=== PATIENT | male | born 1950 | race Caucasian/White ===

== ENCOUNTER 2018-12-09 14:31 | Inpatient (IN) ==
[2018-12-09] MEDS ORDERED: *HR* Ticagrelor 90 MG TABLET PO ONE (14:45)
[2018-12-09] MEDS ORDERED: *HR* Heparin 5,000 UNIT/ML VIAL IVP ONE (14:45)
[2018-12-09] MEDS ORDERED: Heparin 25,000 UNIT/250 ML D5W 25,000 UNIT/250 ML IV.SOLN IVC SCH (14:45)
[2018-12-09] MEDS ORDERED: *HR* Heparin 5,000 UNIT/ML VIAL IVP PRN ×2 (14:45)
--- NOTE | 2018-12-09 14:54 | Emergency Department Note ---
Disposition Clinical Impression: STEMI (ST elevation myocardial infarction) Qualifiers: Involved coronary artery: unspecified coronary artery Qualified Code(s): I21.3 - ST elevation (STEMI) myocardial infarction of unspecified site Disposition: Admitted As Inpatient [facility] - Forms: ED Satisfaction Letter Time of Disposition: 14:59 General Adult HPI - General Stated complaint: [place] Stemi Time Seen by Provider: 12/09/18 14:36 Source: patient, EMS Mode of arrival: EMS Limitations: no limitations Nursing Notes Reviewed: Yes Vital Signs Reviewed: Yes - History of Present Illness HPI Narrative: 68M with PMHx of COPD presents to the ED via EMS with concern for a STEMI. Pt has had 4 days of intermittent cp but the pain became more severe last night [facility] Pt states belching improves the pain but has never completely gotten rid of the pain. Pt was found to have an elevated troponin at the [facility] of 0.16 with EKG changes while at the [facility] and was transferred here for further evaluation and possible intervention. Pt complains of chest pain across his chest without radiation anywhere. He denies nausea, vomiting, and increased shortness of breath. He received nitro via EMS which did not improve his pain. - Related Data Allergies Allergy/AdvReac Type Severity Reaction Status Date / Time acetaminophen [From Percocet] Allergy Diarrhea Verified 12/09/18 14:48 ampicillin Allergy Diarrhea Verified 12/09/18 14:48 oxycodone [From Percocet] Allergy Diarrhea Verified 12/09/18 14:48 Penicillins [PCN] Allergy Diarrhea Verified 12/09/18 14:48 All systems ED: reviewed and negative except as stated. Review of Systems: As Per HPI Constitutional: Denies: fever, chills, weakness Cardiovascular: Reports: chest pain. Denies: palpitations, dyspnea on exertion Respiratory: Reports: cough. Denies: dyspnea, wheezes Gastrointestinal: Denies: abdominal pain, nausea, vomiting Genitourinary: Denies: dysuria, hematuria Musculoskeletal: Denies: back pain, neck pain Endocrine: Reports: fatigue Past Medical History - Past Medical History Attestation: Yes The following information was validated with the patient. Source: patient Medical history: Reports: COPD Physical Exam - General Limitations: no limitations General appearance: alert, in distress (mild distress) - Head Head exam: atraumatic, normocephalic - Eye Eye exam: Present: normal appearance, EOMI - Chest Chest inspection: Present: normal inspection. Absent: tenderness, rash - Respiratory Respiratory exam: Present: wheezes, other (diminished breath sounds throughout all lung winter) - Cardiovascular Cardiovascular exam: Present: regular rate, normal rhythm - Abdominal Exam Abdominal exam: Present: soft, Non-Tender. Absent: distention, guarding, rebound, rigidity - Extremities Exam Extremities exam: Present: normal inspection. Absent: tenderness, pedal edema - Neurological Exam Neurological exam: Present: alert, oriented X3 - Psychiatric Psychiatric exam: Present: normal affect, normal mood - Skin Skin exam: Present: warm, dry, intact Medical Decision Making - MDM Narrative Medical decision making narrative: Patient presents from the [facility] with chest pain, elevated troponin and EKG changes. A STEMI alert was called and spoke with tariff expert Dr. Maryana Mendoza. Aspirin was given prior to arrival at this hospital but we will load the patient with Dr. Olivo start heparin. We will take the patient to the [facility] for stenting. Since the EKG changes are in the inferior leads this is a possible right-sided STEMI and will not give any more nitroglycerin. The patient's blood pressure is slightly elevated but stable. We will continue to monitor while in the ER and give fluid boluses as needed. - Medical Records Medical records reviewed: Yes I reviewed the patient's medical records. - Lab Data Lab results reviewed: Yes I reviewed the patient's lab results. Result diagrams: 12/09/18 14:44 12/09/18 14:44 - Radiology Data Radiology results reviewed: Yes I reviewed the patient's radiology results. - EKG Data EKG #1 EKG attestation: Yes I reviewed and interpreted this EKG. EKG results narrative: EKG obtained at 1436 on 12/09/2018 Heart rate 86 bpm, ID interval 133, QRS duration 96, QT 402, QTC [address] segment elevations in leads 2, 3 and aVF. There are reciprocal ST depressions in leads V1 through V5. These changes are new when compared to EKGs done [facility] today [facility] 1320 [facility]2 [facility] Attestation Statement - Attestation Attestation: I, Nahum Carbajal, examined this patient and my medical decision-making was reviewed with the [employer]NA[employer]/PA/Advanced Practice Nurse/Resident Physician. I agree with the documented findings, disposition and treatment plan as described except to the extent set forth below. 68-year-old male presents emergency Department with concerns of chest pain. Patient states his pain has been intermittent over the past 4 days however became worse last night. He reports the pain is epigastric, does not radiate. It is associated with nausea and he has feelings of the need for eructation. Patient denies syncopal episode. No recent trauma. Patient has a long history of tobacco abuse. Patient had an elevated troponin at the [facility] of 0.16. EKG showed concerning changes for elevation into 3 and aVF with depressions in V2, V3, V4.I reviewed the EKG with the resident and agree with the interpretation. EKG changes are dynamic compared to the ones taken at the [facility]. Patient continues to have chest pain however it is described as mild emergency department. We called a STEMI alert and spoke it immediately with the tariff expert. The tariff expert, Jing Mendoza, reported that the EKG changes, although concerning, did not qualify for STEMI. I was however concerned about the patient's case and he was eventually taken to the [facility] for further evaluation. Patient left the emergency department in stable condition. Labs from the [facility] showed hemoglobin of 15.4, WBC of 7.8, platelets of 276. Troponin of 0.16. Sodium of 138, potassium 3.5, creatinine 1.08. Chest x-ray at the [facility] showed pulmonary edema with possible atelectasis and a right pleural effusion.
[2018-12-09 14:59] LABS: Basophils % 0.3 %; Eosinophils # 0.2 K/mcL (0.0-0.6); Eosinophils % 2.7 %; Hematocrit 46.9 % (37.5-50.1); Hemoglobin 15.9 g/dL (12.9-16.9); Immature Granulocytes % 0.2 % (0-4); Lymphocytes # 1.4 K/mcL (0.6-4.6); Mean Corpuscular HGB Conc 33.9 g/dL (31.6-35.5); Mean Corpuscular Hemoglobin 33.8 pg (28.0-33.3); Mean Corpuscular Volume 99.6 fL (83.0-100.0); Mean Platelet Volume 10.5 fL (9.4-12.4); Monocytes # 0.6 K/mcL (0.0-1.3); Monocytes % 6.9 %; Neutrophils # 6.5 K/mcL (1.6-8.9); Platelet Count 259 K/mcL (140-400); Red Blood Count 4.71 M/mcL (4.19-5.50); Red Cell Distribution Width 12.9 % (11.5-14.5); Segmented Neutrophils % 73.9 %; White Blood Count 8.8 K/mcL (4.3-11.1)
[2018-12-09] MEDS ORDERED: *HR* Midazolam HCl 2 MG/2 ML VIAL ONE ×2 (15:03→15:26)
[2018-12-09] MEDS ORDERED: *HR* FentaNYL (PF) 100 MCG/2 ML VIAL ONE (15:03)
[2018-12-09] MEDS ORDERED: *HR* Heparin 10,000 UNIT/10 ML VIAL ONE (15:09)
[2018-12-09] MEDS ORDERED: Heparin 1,000 UNITS/500 mL 500 ML ONE (15:09)
[2018-12-09] MEDS ORDERED: 0.9 % Sodium Chloride 1,000 ML ONE (15:09)
[2018-12-09] MEDS ORDERED: Iopamidol 125 ML INFUS..BTL ONE (15:09)
[2018-12-09] MEDS ORDERED: Nitroglycerin 1,000 MCG/10 ML VIAL IV ONE (15:09)
[2018-12-09 15:12] LABS: INR 1.1; Prothrombin Time 12.6 Seconds (9.4-12.1)
[2018-12-09 15:14] LABS: Activated Partial Thrombo Time 32.2 Seconds (26.0-36.0)
[2018-12-09 15:30] LABS: BUN/Creatinine Ratio 7 (6-26); Blood Urea Nitrogen 7 mg/dL (8-23); Calcium 8.7 mg/dL (8.6-10.3); Carbon Dioxide 28 mEq/L (23-29); Chloride 102 mEq/L (98-107); Glucose 91 mg/dL (70-105); Magnesium 1.5 mg/dL (1.6-2.6); Osmolality,Calculated 280 (280-300); Potassium 3.4 mEq/L (3.5-5.1); Sodium 136 mEq/L (136-145); Troponin I 0.12 ng/mL (< 0.04); eGFR For African Americans > 60 (> 60); eGFR For Non-African Americans > 60 (> 60)
--- NOTE | 2018-12-09 16:04 | Cardiology History & Physical ---
Date of Encounter: 12/09/18 Time of Encounter: 16:00 Assessment and Plan (1) NSTEMI (non-ST elevated myocardial infarction) Current Visit: Yes Status: Acute Per Cardiology: Transfer from the [place] with chest pain with troponin of 0.12. Non-STEMI, taken urgently for catheterization by Dr. Maryana Mendoza, status post drug-eluting stent to distal RCA 100% lesion. Starting on aspirin, statin, Plavix, beta dahiana. Echo ordered. The assessment and plan as outlined above was discussed with the patient and/or family members who expressed understanding and agreement. All questions were answered. History of Present Illness Chief complaint: Chest Pain HPI: Mr. Franco is a 68 year old male with a relevant past medical history of COPD, nicotine abuse, hemorrhoidectomy in 2016, GERD. Last seen by Dr. Scott May 2017. Presented to the [place] with midsternal chest pain radiating across his chest for the past four days intermittently at rest. Indicates did develop some chest pain mowing the other day. Reports increased short of breath at rest and with exertion and has been borrowing his 's oxygen. Does report overall increase in fatigue. Denied any other accompanying symptomatology. Patient urgently taken for left heart catheterization by Dr. Maryana Mendoza and underwent drug- eluting stent to distal RCA 100% lesion. Past Med Surg Social Fam HX - Past Medical History Attestation: Yes The following information was validated with the patient. Source: patient, old records reviewed, obtained from family Medical history: COPD Psychiatric history: no psych history - Social History Smoking Status: Current every day smoker Packs per day: 1ppd for 63 years Smokeless Tobacco Status: No Alcohol use: none Drug use: none Medications and Allergies Allergy/AdvReac Type Severity Reaction Status Date / Time acetaminophen [From Percocet] Allergy Diarrhea Verified 12/09/18 14:48 ampicillin Allergy Diarrhea Verified 12/09/18 14:48 oxycodone [From Percocet] Allergy Diarrhea Verified 12/09/18 14:48 Penicillins [PCN] Allergy Diarrhea Verified 12/09/18 14:48 All Systems Review: The remainder of the systems were reviewed and are negative - Constitutional Constitutional: fatigue - Cardiovascular Cardiovascular: as per HPI, chest pain at rest, chest pain with exertion, dyspnea at rest, dyspnea on exertion Physical Examination Vital Signs, Last 4 Hours Temp Pulse Resp BP Pulse Ox 12/09/18 14:46 98.1 F 89 18 191/107 96 General: Conversant, No Apparent Distress HEENT: Atraumatic, Normocephaly, Mucus Membranes Moist Neck: No JVD, Normal carotid pulses Cardiac: Reg Rate and Rhythm, Normal S1 and S2, No Murmur Lungs: Normal Breath Sounds, No Wheeze, Rales, Rhonchi, Other (diminished to bases) Neuro: Alert and responsive, No focal deficits noted Abdomen: Soft, Non-Tender Skin: No rashes noted on visualized skin, Other (R DP and PT pulses 1+ palp) Musculoskeletal: No Chest Wall Tenderness Extremities: No Clubbing, No Cyanosis, No Edema, Normal Pulses Results 12/09/18 14:44 12/09/18 14:44 Lab Results Laboratory Tests 12/09/18 12/09/18 12/09/18 14:44 14:44 14:44 Hgb 15.9 Hct 46.9 INR 1.1 Creatinine 0.97 Est GFR (Non-Af Amer) > 60 Magnesium 1.5 L Troponin I 0.12 H* ITS Impressions Chest X-Ray 12/09/18 14:37 IMPRESSION: Mild cephalization the pulmonary vascularity may be secondary to congestive changes. Early patchy infiltrates in the lung bases with bilateral pleural effusions may be secondary to congestive changes however cannot exclude the possibility of overlying pneumonia. D/ / Dileep Machado MD / Dielep Machado MD Interpreting Provider: Dlieep Machado MD Active Medications Heparin Sodium (Porcine) (Heparin) 4,000 unit IVP Q6HR PRN PRN Reason: SEE COMMENTS Stop: 06/10/19 14:46 Heparin Sodium (Porcine) (Heparin) 2,000 unit IVP Q6H PRN PRN Reason: SEE COMMENTS Stop: 06/10/19 14:46 Heparin Sodium/Dextrose (Heparin 25,000 Unit/250 Ml D5w) 25,000 unit in 250 mls @ 9.624 mls/hr IVC .Q24H BERNABE; Protocol Stop: 06/10/19 14:46 - Imaging and Cardiology Echo: pending Cardiac cath: other - EKG Interpretation EKG results cardiology: personally reviewed (with Dr. Jing Mendoza and Dr. Randle) HAS-BLED Score - Score Hypertension: Uncontrolled,>160 mmhg systolic Elderly: Age>65 years Score: 2
[2018-12-09] MEDS ORDERED: *HR* Bivalirudin 250 MG VIAL IVC ONE (16:05)
[2018-12-09] MEDS ORDERED: Nitroglycerin 0.4 MG TAB.SUBL SL PRN (16:13)
[2018-12-09] MEDS ORDERED: 0.9 % Sodium Chloride 1,000 ML IVC SCH (16:15)
--- NOTE | 2018-12-09 16:30 | Invasive Diagnostic Lab Proc ---
Name: Justin Franco Date of Study: 12/09/2018 Date: 1950 Ht: 70.0in Medical Record#: [id number] Age: 68 Wt: 176.37lb Gender: Male BSA: 1.98 Order #: [id number] BMI: 25.31 Physicians Procedure Physician: Maryana Mendoza MD, [facility] Referring MD: Referring MD: Staff Name Position Time In [facility], Swati RT (R) Monitor 03:05 PM [facility], Swati RT (R) Monitor 03:06 PM Turcios Maryana RT (R) Scrub 03:07 PM Twila Puente RN Public Affairs Director 03:07 PM Indications Indication STEMI Procedures Performed Procedure L HRT ARTERY/VENTRICLE ANGIO PRQ CARD REVASC PR 1 VSL PRQ CARD STENT W/ANGIO ADDL Pre-Procedure Checklist Informed consent is complete signed and on chart. ID band is on and ID verified with patient. Pt not NPO for procedure and MD aware. Blood Pressure: 183/118 ECG is on chart. Rhythm: NSR Plan of Care Patient will tolerate the procedure without complications. Adequate level of comfort will be maintained. Hemodynamics will remain stable Patient will recover from procedure without complications. Respiratory function will be maintained. Cardiac rhythm will remain stable. Patient temperature will be maintained. Patient and/or family have verbalized understanding of the procedure. Patient Education Chief Complaint/Reason for Test: Cardiac Cath Developmental Category: Geriatric (65+ years) Developmentally Appropriate for Age: Yes Learning Barriers: None Education Needs: Procedure Education Method: Verbal Information Taught: Cardiac Cath Educational Evaluation: Able to repeat information Intravenous Access Time IV Size Location DC'd Fluid/Drip Rate Units RN 18g 1 /" Patent On Arrival Rt Antecubital 0.9NaCl 50 ml/hr Twila Puente RN Allergies Penicillins oxycodone acetaminophen ampicillin Vital Signs Time BP (mmHg) HR (bpm) O2 Sat. RR (bpm) LOC 183 / 118 % 03:14 PM 183 / 118 89 78 % 24 03:18 PM 156 / 111 86 85 % 21 03:24 PM 180 / 121 82 86 % 16 03:28 PM 189 / 105 63 98 % 16 03:33 PM 164 / 99 69 94 % 20 03:38 PM 159 / 117 72 95 % 20 03:43 PM 142 / 82 75 95 % 20 03:48 PM 146 / 94 83 94 % 25 03:53 PM 143 / 82 77 94 % 20 03:58 PM 146 / 98 80 91 % 18 Procedural Medications Time Medication Dose Units Method Given By 03:07 PM Oxygen 2 L/min nasal cannula Twila Puente RN 03:13 PM Versed 2 mg Intravenous Twila Puente RN 03:14 PM Fentanyl 50 mcg Intravenous Twila Puente RN 03:15 PM Lidocaine 2% 20 ml Subcutaneous Maryana Mendoza MD, [facility] 03:16 PM Oxygen 6 L/min Oxy Mask Twila Puente RN 03:17 PM Oxygen 10 L/min nasal cannula Twila Puente RN 03:20 PM Angiomax 0.75mg/kg bolus: 12 ml Intravenous Twila Puente RN 03:20 PM Angiomax 1.75mg/kg/hr: 28 ml Intravenous Twila Puente RN 03:26 PM Versed 1 mg Intravenous Twila Puente RN 03:26 PM Fentanyl 25 mcg Intravenous Twila Puente RN 03:27 PM Oxygen 6 L/min nasal cannula Twila Puente RN 03:29 PM Oxygen 4 L/min nasal cannula Twila Puente RN 03:41 PM Nitroglycerin 200 mcg Intracoronary Maryana Mendoza MD, [facility] 03:52 PM Nitroglycerin 200 mcg Intracoronary Maryana Mendoza MD, [facility] ASA Classification: Emergent Procedure: ASA score is assumed Carol Score Preprocedure Postprocedure Activity 2- Moves 4 extremities sustained head lift Activity 2- Moves 4 extremities sustained head lift Circulation 2- SBP +/= 20 points of pre-anesthetic level Circulation 2- SBP +/= 20 points of pre-anesthetic level Consciousness 2- Awake and alert oriented x 3 Consciousness 2- Awake and alert oriented x 3 O2 Saturation 2- Able to maintain O2 satruation of 92% on room air O2 Saturation 2- Able to maintain O2 satruation of 92% on room air Respiratory 2- Able to deep breathe and cough well Respiratory 2- Able to deep breathe and cough well Total Score 10 Total Score 10 Contrast Agent: Isovue Diagnostic Contrast: 151 ml Total Contrast: 151 ml Fluoro Dose: 77 mGy Procedure Log Time Note Enter By 03:05 PM Pt arrived to chemical laboratory scientist 2 at 15:05 tsites 03:05 PM Patient charges- Angio tray pack, Navilyst 3mm J, Pulse Oximetry and ACIST tubing and transducer tsites 03:05 PM Physician arrived 15:05 tsites 03:05 PM Reynaldo and karlos completed tsites 03:05 PM Sign in performed according to hospital policy. Informed consent was obtained. tsites 03:06 PM Swati Billy RT (R) Position: Monitor Time in: 15: tsites 03:07 PM Maryana Turcios RT (R) Position: Scrub Time in: 15: tsites 03:07 PM Twila Puente RN Position: Public Affairs Director Time in: 15: tsites 03:07 PM Case Delayed No tsites 03: PM Procedure start 15: tsites 03:08 PM Time: 15: Oxygen on at 2 L/min per nasal cannula by Twila Puente RN tsites 03:10 PM Vitals capture started with the following parameters, Patient=Adult, Interval=5 min, Initial Epfibfmb=278 mmHg, Deflation Rate=3 mmHg, Cuff placed on Right Arm 03:10 PM CathStat 03:11 PM Vitals capture stopped. 03:12 PM Vitals capture started with the following parameters, Patient=Adult, Interval=5 min, Initial Axjcpqwx=742 mmHg, Deflation Rate=3 mmHg, Cuff placed on Right Arm 03:13 PM Hair removed from procedure site in holding area using clippers. Bilateral groin prepped with Chloraprep by Maryana Turcios (R), then patient was draped. Skin intact. tsites 03:13 PM Time: 15:13 Versed 2 mg Intravenous Given by Twila Puente RN tsites 03:14 PM Time: 15:14 Fentanyl 50 mcg Intravenous Given by Twila Puente RN tsites 03:14 PM HR=89 bpm, HKXU=583/118 mmhg, SpO2=78.0 %, Resp=24 B/min 03:15 PM Time out was performed according to hospital policy. Conscious sedation and anesthesia was achieved (see medication log with in this report above) tsites 03:15 PM Time: 15:15 20 ml Lidocaine 2% to right groin Subcutaneous Given by Maryana Mendoza MD, [facility] tsites 03:15 PM Access obtained by percutaneous puncture. 6Fr 10cm Terumo Hunker sheath placed in right Femoral artery. [id number] tsites 03:15 PM 5Fr FL 4 catheter inserted over the wire [facility] tsites 03:15 PM 0.035 145cm Navilyst 3mmJ wire [id number] tsites 03:16 PM Time: 15:16 Oxygen on at 6 L/min per Oxy Mask by Twila Puente RN tsites 03:17 PM Recorded Pressure: Ao, HR=81, Condition=Condition 1 (Aorta) Ao 119/35/79 03:17 PM LCA angiography performed in multiple views. tsites 03:17 PM Time: 15:17 Oxygen on at 10 L/min per nasal cannula by Twila Puente RN tsites 03:18 PM HR=86 bpm, EKPK=835/111 mmhg, SpO2=85.0 %, Resp=21 B/min 03:19 PM 5Fr FR 4 catheter inserted over the wire [facility] tsites 03:19 PM RCA angiography performed in multiple views. tsites 03:19 PM Recorded Pressure: Ao, HR=89, Condition=Condition 1 (Aorta) Ao 158/111/136 03:20 PM Time: 15:20 Angiomax 0.75mg/kg bolus: 12 ml Intravenous Given by Twila Puente RN Gaytan pump tsites 03:20 PM Time: 15:20 Angiomax 1.75mg/kg/hr: 28 ml Intravenous Given by Twila Puente RN Gaytan pump tsites 03:21 PM Recorded Pressure: LV, HR=84, Condition=Condition 1 (Left Ventricle) LV 185/17/31 03:21 PM Recorded Pressure: LV, Ao, HR=88, Condition=Condition 1 (Left Ventricle) LV 190/18/30, (Aorta) Ao 190/110/147 03:22 PM 6Fr JR 4 Runway guide catheter was used to cannulate the PCI vessel successfully. reused? No tsites 03:22 PM Inflation device was opened. tsites 03:22 PM .014 Prowater 180cm guide wire across target lesion- successful. reused? No tsites 03:24 PM HR=82 bpm, PXGR=836/121 mmhg, SpO2=86.0 %, Resp=16 B/min 03:25 PM .014 PT Graphix 300cm guide wire across target lesion- successful. reused? No tsites 03:26 PM 2.0 mm x 15 mm Emerge OTW balloon across target lesion- successful. reused? No tsites 03: PM Time: 15:26 Versed 1 mg Intravenous Given by Twila Puente RN tsites 03: PM Time: 15: Fentanyl 25 mcg Intravenous Given by Twila Puente RN tsites 03: PM PCI lesion in Distal RCA. Pre Stenosis: 100 Pre KEELY Flow: 0: No Flow/No perfusion tsites 03: PM PCI Indication: Immediate PCI for STEMI tsites 03: PM Time: 15:27 Oxygen on at 6 L/min per nasal cannula by Twila Puente RN tsites 03: PM Balloon inflated @ 14 ute for 20 seconds tsites 03: PM Balloon inflated @ 14 ute for 30 seconds tsites 03: PM HR=63 bpm, YHOE=666/105 mmhg, SpO2=98.0 %, Resp=16 B/min 03: PM Time: 15:29 Oxygen on at 4 L/min per nasal cannula by Twila Puente RN tsites 03:29 PM Recorded Pressure: Ao, HR=56, Condition=Condition 1 (Aorta) Ao 109/75/92 03:33 PM Balloon catheter removed intact. tsites 03:33 PM .014 PT Graphix 180cm guide wire across target lesion- successful. reused? No tsites 03:33 PM HR=69 bpm, SZWV=184/99 mmhg, SpO2=94.0 %, Resp=20 B/min 03:38 PM 2.0 mm x 15 mm Emerge Monorail balloon across target lesion- successful. reused? No tsites 03:38 PM HR=72 bpm, BMCR=537/117 mmhg, SpO2=95 %, Resp=20 B/min 03:38 PM PCI lesion in Right PDA. Pre Stenosis: 100 Pre KEELY Flow: 0: No Flow/No perfusion tsites 03:39 PM Balloon inflated @ 14 ute for 20 seconds tsites 03:40 PM Balloon inflated @ 14 ute for 20 seconds tsites 03:40 PM Recorded Pressure: Ao, HR=88, Condition=Condition 1 (Aorta) Ao 148/104/126 03:40 PM Balloon inflated @ 20 ute for 20 seconds tsites 03:41 PM Balloon catheter removed intact. tsites 03:42 PM Time: 15:41 Nitroglycerin 200 mcg Intracoronary Given by Maryana Mendoza MD, [facility] tsites 03:43 PM HR=75 bpm, AWYR=789/82 mmhg, SpO2=95 %, Resp=20 B/min 03:45 PM 3.0mm x 32mm Synergy drug-eluting stent across target lesion- successful Lot #[id number] tsites 03:48 PM HR=83 bpm, EEYL=845/94 mmhg, SpO2=94 %, Resp=25 B/min 03:50 PM removed prowater tsites 03:52 PM Stent deployed @ 14 ute for 30 seconds tsites 03:53 PM Time: 15:52 Nitroglycerin 200 mcg Intracoronary Given by Maryana Mendoza MD, [facility] tsites 03:53 PM HR=77 bpm, UAGJ=326/82 mmhg, SpO2=94.0 %, Resp=20 B/min 03:53 PM Guide catheter removed intact. tsites 03:54 PM 5Fr Pigtail catheter inserted over the wire [facility] tsites 03:54 PM Catheter crossed the aortic valve and was selectively placed in the left ventricle. Pressures recorded on pullback for left heart catheterization. tsites 03:55 PM Recorded Pressure: LV, HR=79, Condition=Condition 1 (Left Ventricle) LV 140/-1/13 03:56 PM Recorded Pressure: LV, Ao, HR=79, Condition=Condition 1 (Left Ventricle) LV 123/40/50, (Aorta) Ao 123/92/108 03:56 PM Bolus angiogram of left Ventricle complete: 8 ml/sec for a total of 24 mls tsites 03:56 PM Recorded Pressure: Ao, HR=79, Condition=Condition 1 (Aorta) Ao 140/74/100 03:56 PM Bolus angiogram of right Femoral complete: 2 ml/sec for a total of 4 mls tsites 03:58 PM HR=80 bpm, SQGB=746/98 mmhg, SpO2=91 %, Resp=18 B/min 04:08 PM Sign out completed: Radiation Dose 590 mGy, 77.2 Gy/cm2 Fluoro Time: 15.6 Isovue 370 - 200ml contrast 151 ml given by Maryana Mendoza MD, [facility]. Complications: None. 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 Sedation minutes 64. Cardiac Rehab Consult needed: Yes. Confirmed administered medications: Yes tsites 04:08 PM Isovue 370 - 200ml,2 Bottle(s) used. tsites 04:08 PM Procedure completed at 16:08 12/09/2018 tsites 04:08 PM Coronary Dominance: right tsites 04:08 PM Sheath left in place to be pulled on floor/holding areaV+Pad tsites 04:08 PM Estimated Blood Loss: minimal tsites 04:09 PM Post ECG NSR tsites 04:10 PM Post Blood Pressure 146/98 tsites 04:10 PM 16:10 Post Pulses Bilateral DP & PT 1+ tsites 04:10 PM Information taught Cardiac Cath and PCI tsites 04:11 PM Education needs Procedure, Plan of Care, and Responsibilities of Patient in Care tsites 04:12 PM Learning barriers :None tsites 04:12 PM Education Methods Verbal tsites 04:12 PM Education evaluation Able to repeat information tsites 04:14 PM Site status No bleeding/ No Hematoma - Rt Groin as reported by Maryana Turcios RT (R) at 16:12 tsites 04:14 PM Report given to basia BASURTO Pt taken to ICU Room #5. 16:14 tsites 04:14 PM Plavix, Effient or Brilinta given Yes tsites 04:14 PM Delay to floor No tsites 04:14 PM Patient out of room: 16:14 tsites 04:14 PM Family placed in consult room. tsites 04:16 PM Lesion found in Proximal RCA. Pre Stenosis: 30 Pre KEELY Flow: tsites 04:16 PM Lesion found in Mid RCA. Pre Stenosis: 50 Pre KEELY Flow: tsites 04:16 PM Lesion found in Mid LMCA. Pre Stenosis: 30 Pre KEELY Flow: tsites 04:16 PM Lesion found in Proximal LAD. Pre Stenosis: 40 Pre KEELY Flow: tsites 04:16 PM Lesion found in Mid LAD. Pre Stenosis: 40 Pre KEELY Flow: tsites 04:16 PM Lesion found in Proximal Circumflex. Pre Stenosis: 30 Pre KEELY Flow: tsites Complications Complication None Hemodynamics Pressures Site Systolic/A Wave Diastolic/V Wave Mean AO 119 35 79 AO 158 111 136 LV 185 17 31 LV 190 18 30 AO 190 110 147 AO 109 75 92 AO 148 104 126 LV 140 -1 13 LV 123 40 50 AO 123 92 108 AO 140 74 100 Post Procedure Information Blood Pressure: 146/98 mmHg Rhythm: NSR Post procedural instructions were given Closure Device Time Device Success/Fail 12/09/2018 4:15:00 PM Manual Compression Site Checks Time Location Status Staff Sheath In? Note 04:12 PM Rt Groin No bleeding/ No Hematoma Maryana Turcios RT (R) Pulses Time Site Pre-Procedure Post-Procedure Note Bilateral DP & PT 1+ 4:10:00 PM Bilateral DP & PT 1+ Updated by [facility], RT (R) on 12/09/2018 4:22:53 PM [facility], RT electronically signed on 12/09/2018 4:24:38 PM with status of Final
[2018-12-09 18:41] LABS: Hematocrit 44.7 % (37.5-50.1); Hemoglobin 15.3 g/dL (12.9-16.9); Mean Corpuscular HGB Conc 34.2 g/dL (31.6-35.5); Mean Corpuscular Volume 99.3 fL (83.0-100.0); Platelet Count 271 K/mcL (140-400); Red Cell Distribution Width 12.9 % (11.5-14.5); White Blood Count 9.5 K/mcL (4.3-11.1)
[2018-12-09] MEDS ORDERED: *HR* Atropine Sulfate 1 MG/10 ML SYRINGE ONE (22:22)
[2018-12-10 04:51] LABS: Hemoglobin 14.8 g/dL (12.9-16.9); Mean Corpuscular HGB Conc 34.4 g/dL (31.6-35.5); Mean Corpuscular Hemoglobin 34.4 pg (28.0-33.3); Mean Platelet Volume 10.9 fL (9.4-12.4); Platelet Count 268 K/mcL (140-400); Red Cell Distribution Width 12.8 % (11.5-14.5); White Blood Count 9.2 K/mcL (4.3-11.1)
[2018-12-10 05:05] LABS: BUN/Creatinine Ratio 10 (6-26); Blood Urea Nitrogen 8 mg/dL (8-23); Calcium 8.2 mg/dL (8.6-10.3); Carbon Dioxide 23 mEq/L (23-29); Chloride 104 mEq/L (98-107); Glucose 93 mg/dL (70-105); Osmolality,Calculated 278 (280-300); Potassium 3.6 mEq/L (3.5-5.1); Sodium 135 mEq/L (136-145); eGFR For African Americans > 60 (> 60); eGFR For Non-African Americans > 60 (> 60)
[2018-12-10 05:07] LABS: Chol/HDL Ratio 3.8 (0-4.9); Troponin I 16.59 ng/mL (< 0.04)
[2018-12-10 07:51] LABS: Estimated Average Glucose 100 mg/dl
[2018-12-10] MEDS ORDERED: Aspirin Enteric Coated 81 MG Tablet PO SCH (09:00)
--- NOTE | 2018-12-10 11:52 | Cardiology Progress Note ---
Date of Encounter: 12/10/18 Time of Encounter: 11:49 Assessment and Plan (1) NSTEMI (non-ST elevated myocardial infarction) Current Visit: Yes Status: Acute Per Cardiology: Transfer from the [place] with chest pain with initial troponin of 0.12, then 16.59. Non-STEMI, taken urgently for [facility] 12/09, Single vessel coronary artery disease. There is moderate to severe global LV Dysfunction EF 30%. Patient had successful PTCA/Drug-Eluting Stent placement in the distal RCA. Patient had successful PTCA in the R PDA. DAPT (ASA and Plavix) uninterrupted x 1 year. Pt verbalizes understanding. Continue Statin, BB, ACEi. TTE Technically sub-optimal due to poor echocardiographic windows. Not all LV segments were visualized. LVEF is moderate to severely reduced with global and segmental left ventricular systolic dysfunction. Mild LVDD. Definity echo contrast was not used. Patient declined. The right ventricle was not well visualized. The valves were not well visualized but no obvious significant dysfunction appreciated. Discussed with pt. He is agreeable to repeat TTE with definity. Step down out of ICU today to 2N or 2NE. Reports intermittent dyspnea and mild left sided chest pain. Repeat CXR. inhalers and home meds resumed. (2) CAD (coronary artery disease) Current Visit: Yes Status: Acute As above. ASA, Plavix, Statin, BB, ACEi. Qualifiers: Coronary Disease-Associated Artery/Lesion type: [place] artery [place] vs. transplanted heart: [place] heart Associated angina: without angina Qualified Code(s): I25.10 - Atherosclerotic heart disease of [place] coronary artery without angina pectoris (3) Cardiomyopathy Current Visit: Yes Status: Acute EF 30% on [facility]. TTE EF appeared reduced, but pt declined definity. He is now agreeable. Repeat. Continue BB and ACEi. Appears euvolemic on exam, but will repeat CXR given intermittent dyspnea. Qualifiers: Cardiomyopathy type: ischemic Qualified Code(s): I25.5 - Ischemic cardiomyopathy (4) Tobacco abuse Current Visit: Yes Status: Acute Discussion w patient/family: The assessment and plan as outlined above was discussed with the patient and/or family members who expressed understanding and agreement. All questions were answered. Thank you for involving us in the care of your patient. Please call with any questions. I will discuss all the above with Dr. Gonzáles and make changes as necessary. Subjective Principal diagnosis: NSTEMI Interval history: Reports intermittent dyspnea and chest pain, left sided currently 0.5/10. Objective Vital Signs, Last 4 Hours Temp Pulse Resp BP Pulse Ox 12/10/18 11:00 79 17 130/70 93 12/10/18 10:00 72 16 129/77 95 12/10/18 09:00 87 21 132/76 94 12/10/18 08:00 97.3 F L 87 Vital Signs Temp Pulse Pulse Resp BP Pulse Ox 12/10/18 11:00 79 17 130/70 93 12/10/18 10:00 72 16 129/77 95 12/10/18 09:00 87 21 132/76 94 12/10/18 08:00 97.3 F L 87 12/10/18 06:00 72 17 132/73 94 12/10/18 05:00 67 15 111/79 94 12/10/18 04:25 91 12/10/18 04:00 64 15 115/73 94 12/10/18 03:00 68 18 142/76 94 12/10/18 02:00 73 12 140/84 91 12/10/18 01:00 67 16 126/75 93 12/10/18 00:39 98.0 F 12/10/18 00:30 71 20 137/77 95 12/10/18 00:00 57 20 137/77 9 12/09/18 23:45 65 20 145/87 94 12/09/18 23:30 85 18 141/88 94 12/09/18 23:20 79 79 14 132/90 97 12/09/18 23:15 79 68 14 142/71 95 12/09/18 23:00 76 68 14 155/90 95 12/09/18 22:55 67 68 14 139/89 94 12/09/18 22:51 75 68 14 147/78 97 12/09/18 22:45 75 75 14 163/84 96 12/09/18 22:19 78 77 17 134/82 95 12/09/18 22:00 66 23 142/82 97 12/09/18 21:00 72 16 146/86 93 12/09/18 20:25 84 12/09/18 20:05 77 77 12 156/97 95 12/09/18 20:00 80 21 156/97 96 12/09/18 19:00 96.4 F L 73 16 142/86 97 12/09/18 18:00 78 78 17 156/94 97 12/09/18 17:30 87 81 16 162/100 96 12/09/18 17:16 77 18 150/96 96 12/09/18 17:15 75 12/09/18 17:00 77 75 18 160/95 95 12/09/18 16:45 79 22 155/92 92 12/09/18 16:44 81 12/09/18 16:43 84 15 157/97 93 12/09/18 16:41 93 12/09/18 16:26 97.4 F L 83 12 158/101 91 12/09/18 14:46 98.1 F 89 18 191/107 96 Intake and Output 12/09/18 12/10/18 12/10/18 23:59 07:59 15:59 Intake Total 0 / 0 1000 / 1120 120 / 1120 Output Total 1750 / 1750 300 / 300 Balance -1750 / -1750 700 / 820 120 / 820 Intake: IV Fluids 1000 / 1000 0.9 % Sodium Chloride 1,000 ML 1000 / 1000 @ 100 mls/hr IVC .Q10H [facility] Rx#: [id number] Oral 0 / 0 120 / 120 Output: Urine 1750 / 1750 300 / 300 Other: Meal Breakfast Percent of Meal Consumed 15% Stool Size Moderate Stool Consistency liquid formed Stool Color Black Blood Glucose* 92 General: Conversant, No Apparent Distress HEENT: Atraumatic, Normocephaly, Mucus Membranes Moist Neck: No JVD, Normal carotid pulses Cardiac: Reg Rate and Rhythm, Normal S1 and S2, No Murmur Lungs: Other (mild wheezes) Neuro: Alert and responsive, No focal deficits noted Abdomen: Soft, Non-Tender Skin: Other (right femoral access site healing well. No bleeding, hematoma or ecchymosis noted. ) Musculoskeletal: No Chest Wall Tenderness Extremities: No Clubbing, No Cyanosis, No Edema, Normal Pulses Results 12/10/18 04:14 12/10/18 04:14 Lab Results 12/09/18 12/09/18 12/09/18 14:44 14:44 14:44 WBC 8.8 Hgb 15.9 Hct 46.9 Plt Count 259 INR 1.1 APTT 32.2 Sodium 136 Potassium 3.4 L Chloride 102 Carbon Dioxide 28 BUN 7 L Creatinine 0.97 Glucose 91 Calcium 8.7 Magnesium 1.5 L Troponin I 0.12 H* 12/09/18 12/10/18 12/10/18 17:35 04:14 04:14 WBC 9.5 9.2 Hgb 15.3 14.8 Hct 44.7 43.0 Plt Count 271 268 INR APTT Sodium 135 L Potassium 3.6 Chloride 104 Carbon Dioxide 23 BUN 8 Creatinine 0.84 Glucose 93 Calcium 8.2 L Magnesium Troponin I 12/10/18 04:14 WBC Hgb Hct Plt Count INR APTT Sodium Potassium Chloride Carbon Dioxide BUN Creatinine Glucose Calcium Magnesium Troponin I 16.59 H* Impressions Chest X-Ray 12/09/18 14:37 IMPRESSION: Mild cephalization the pulmonary vascularity may be secondary to congestive changes. Early patchy infiltrates in the lung bases with bilateral pleural effusions may be secondary to congestive changes however cannot exclude the possibility of overlying pneumonia. D/ / Dileep Machado MD / Dileep Machado MD Interpreting Provider: Dileep Machado MD Echocardiogram 12/09/18 16:07 Impressions: Technically sub-optimal due to poor echocardiographic windows. Not all LV segments were visualized. LVEF is moderate to severely reduced with global and segmental left ventricular systolic dysfunction. Mild left ventricular diastolic dysfunction. Definity echo contrast was not used. Patient declined. The right ventricle was not well visualized The valves were not well visualized but no obvious significant dysfunction appreciated Unable to estimate RVSP due to lack of TR jet. Left Ventricular Wall Motion: Rest Echo Findings The apical septal, mid inferior septal, basal inferior septal, mid anterior septal and basal anterior septal villanueva were hypokinetic. The mid inferior, mid inferior lateral and basal inferior lateral villanueva were akinetic. The apical anterior, mid anterior, basal anterior, apical lateral and mid anterior lateral villanueva were not visualized. All other wall segments showed normal motion. Findings: Study Quality * Technically sub-optimal due to poor echocardiographic windows. ECG Findings * Sinus rhythm with BBB. Left Ventricle * Not all LV segments were visualized. LVEF is moderate to severely reduced with global and segmental left ventricular systolic dysfunction. * Mild left ventricular diastolic dysfunction. * Definity echo contrast was not used. Patient declined. * Atypical septal motion consistent with bundle branch block. Right Ventricle * The right ventricle was not well visualized Left Atrium * Mild to moderately dilated left atrium. Right Atrium * Right atrium is not well visualized. Interatrial Septum * Interatrial septum not well evaluated. Aortic Valve * Aortic valve not well visualized. * No aortic regurgitation. * No aortic stenosis. Mitral Valve * Mitral valve not well visualized. * No mitral regurgitation. * No mitral stenosis. Tricuspid Valve * Trace tricuspid regurgitation. * No tricuspid stenosis. * Unable to estimate RVSP due to lack of TR jet. * Tricuspid valve not well visualized. Pulmonic Valve * Pulmonic valve not well visualized. Aorta * Normally sized aortic root. Pericardium * The pericardium appears normal. IVC * The IVC is not well evaluated. Pulmonary Artery * Pulmonary artery not well visualized. Active Medications Albuterol Sulfate (Proventil Inhaler) 2 puff IH Q6HR PRN PRN Reason: sob/wheezing Stop: 06/11/19 11:25 Last Admin: 12/10/18 11:45 Dose: 2 puff Documented by: Artificial Tears (Akwa Tears) 1 drop OP TID [facility]; Protocol Stop: 06/11/19 15:01 Aspirin (Aspirin Ec) 81 mg PO DAILY [facility] Stop: 06/11/19 09:01 Last Admin: 12/10/18 08:58 Dose: 81 mg Documented by: Atorvastatin Calcium (Lipitor) 80 mg PO HS [facility] Stop: 06/10/19 21:01 Last Admin: 12/09/18 20:58 Dose: 80 mg Documented by: Clopidogrel Bisulfate (Plavix) 75 mg PO DAILY [facility] Stop: 06/11/19 09:01 Last Admin: 12/10/18 08:58 Dose: 75 mg Documented by: Docusate Sodium (Colace) 100 mg PO BID [facility]; Protocol Stop: 06/11/19 21:01 Duloxetine HCl (Cymbalta) 60 mg PO DAILY [facility] Stop: 06/11/19 11:25 Gabapentin (Neurontin) 300 mg PO TID [facility] Stop: 06/11/19 15:01 Ipratropium [place] (Atrovent Inhaler) 2 puff IH [id number] [facility] Stop: 06/11/19 16:01 Last Admin: 12/10/18 11:45 Dose: 2 puff Documented by: Lisinopril (Zestril) 10 mg PO DAILY [facility]; Protocol Stop: 06/11/19 09:01 Last Admin: 12/10/18 08:58 Dose: 10 mg Documented by: Metoprolol Tartrate (Lopressor) 25 mg PO BID [facility] Stop: 06/10/19 17:01 Last Admin: 12/10/18 08:59 Dose: 25 mg Documented by: Morphine Sulfate (Ms Contin) 15 mg PO Q12HR [facility] Stop: 06/11/19 18:01 Nicotine (Nicoderm) 21 mg TD DAILY [facility]; Protocol Stop: 06/11/19 17:01 Nitroglycerin (Nitroglycerin) 0.4 mg SL Q5MPRN PRN PRN Reason: Chest Pain Stop: 06/10/19 16:14 Non-Formulary Medication (Olodaterol Hcl [Striverdi Respimat]) 2 inh IH DAILY [facility] Stop: 06/12/19 09:01 Non-Formulary Medication (Theophylline Anhydrous [Theophylline]) 200 mg PO DAILY [facility] Stop: 06/12/19 09:01 - Imaging and Cardiology Echo: report reviewed Cardiac cath: report reviewed - VTE Reasons for not Prescribing Prophylaxis: Not indicated-Anticoagulated or INR therapeutic Consult Discharge Plan - Plan [facility]errals: [facility] [Primary Care Provider] -
[2018-12-10] MEDS ORDERED: Albuterol 2.5 MG/3 ML NEBULIZER AER PRN ×2 (11:54→12:30)
[2018-12-10] MEDS ORDERED: Morphine Sulfate ER (12 HR) 15 MG TABLET.ER PO SCH (12:00)
[2018-12-10] MEDS ORDERED: Nicotine 21 MG PATCH.TD24 TD SCH (12:00)
[2018-12-10] MEDS ORDERED: *HR* Heparin 5,000 UNIT/ML VIAL SQ SCH (12:23)
[2018-12-10] MEDS ORDERED: Nitroglycerin 0.4 MG TAB.SUBL SL PRN (12:30)
[2018-12-10] MEDS ORDERED: Artificial Tears SOLN 15 ML BOTTLE OP SCH (15:00)
[2018-12-10] MEDS ORDERED: Gabapentin 300 MG CAPSULE PO SCH (15:00)
--- NOTE | 2018-12-10 15:02 | Electrocardiograph Report ---
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
--- NOTE | 2018-12-10 15:06 | Electrocardiograph Report ---
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
[2018-12-10] MEDS: Furosemide 40 MG/4 ML VIAL IVP ONE ×2 (15:11→15:15)
[2018-12-10] MEDS: Gabapentin 300 MG CAPSULE PO SCH ×2 (15:11→20:18)
[2018-12-10] MEDS: Artificial Tears SOLN 15 ML BOTTLE OP SCH ×2 (15:15→20:19)
[2018-12-10] MEDS: Ipratropium 1 PUFF INHALER IH SCH ×2 (15:47→22:51)
[2018-12-10] MEDS ORDERED: Ipratropium 1 PUFF INHALER IH SCH (16:00)
[2018-12-10] MEDS ORDERED: *HR* LORazepam 1 MG TABLET PO SCH (17:30)
--- NOTE | 2018-12-10 17:41 | Internal Medicine Consult Note ---
Date of Encounter: 12/10/18 Time of Encounter: 17:25 - Assessment and Plan (1) Alcohol withdrawal Current Visit: Yes Status: Acute Assessment and plan: Patient with history of alcohol abuse 10 beers per day presents with post-pro cedural n/v and diarrhea. -Nursing with concern for alcohol withdrawal -Patient denies going through alcohol withdrawal in the past and no tremors or confusion noted -Reasonable to treat n/v with ativan but will r/o infectious causes of diarrhea before treating with anti-diarrheal medications PLAN: - GI panel - CIWA protocol - Nausea control with IV ativan, phenergan, and Zofran prn Qualifiers: Complication of substance-induced condition: uncomplicated Qualified Code(s): F10.230 - Alcohol dependence with withdrawal, uncomplicated (2) Diarrhea Current Visit: Yes Status: Acute Assessment and plan: Could be 2/2 alcohol withdrawal but will r/o infectious causes of diarrhea before treating with anti-diarrheal medications - GI panel Qualifiers: Diarrhea type: unspecified type Qualified Code(s): R19.7 - Diarrhea, unspecified (3) Insomnia Current Visit: Yes Status: Acute Assessment and plan: Complaining of insomnia in the hospital. - Trazodone 50mg Qualifiers: Insomnia type: primary Qualified Code(s): F51.01 - Primary insomnia (4) HFrEF (heart failure with reduced ejection fraction) Current Visit: Yes Status: Acute Assessment and plan: Treatment per cardiology team Qualifiers: Heart failure chronicity: acute Qualified Code(s): I50.21 - Acute systolic (congestive) heart failure (5) NSTEMI (non-ST elevated myocardial infarction) Current Visit: Yes Status: Acute Assessment and plan: Treatment per cardiology team - Time Spent With Patient Total time spent is greater than 50% in coordination of care (as documented) at patient's floor/unit and/or counseling patient: Internal Medicine - CN: HPI - Data of Consult Requesting Physician: Maryana Mendoza - Consult Narrative History of present illness: Mr. Franco is a 68 year old male with hx of alcoholism and COPD presented 910 to the [place] with chest pain and found to have an NSTEMI with near 100% occlusion of RCA s/p LIBRADO. Hospitalist service was consulted due to to concerns for al cohol withdrawal. Patient went for [facility] yesterday with single vessel disease of RCA s/p LIBRADO. Found to have an EF of 30%. Today patient revealed that he drinks 12 beers per day. Nursing with concerns for alcohol withdrawal because patient is having n/v and diarrhea which are new. Patient says that he has quit drinking for a week at a time in the past without going through alcohol withdrawal. Sushant es tremors or confusion. Denies abdominal pain but says he feels "whoozy." Actively retching during interview. Past Med Surg Social Fam HX - Past Medical History Medical history: COPD, GERD, hypertension Psychiatric history: no psych history - Past Surgical History Additional surgical history: hemorrhoidectomy - Social History Smoking Status: Current every day smoker Packs per day: 1ppd for 63 years Smokeless Tobacco Status: No Alcohol use: none Drug use: none Review of systems: General: Fevers / Chills / Weight loss / Night sweats Eyes: Blurry Vision / Change in Vision HENT: Ear Pain / Ear Drainage / Rhinorrhea / Throat Pain / Lymphadenopathy Cardiovascular: Chest Pain / Palpatations / Orthopnea / GOTTLIEB / Weight gain Lungs: Dyspnea / Wheezing / Cough / Sputum production / Pleurisy Abdomen: Abdomen pain / Abdominal distention / Nausea / Vomiting / Diarrhea / Const : Dysuria / Urinary Frequency / Urinary Urgency / Hematuria Extremities: LE edema / Ext pain / Ext erythema Skin: Rashes / Abrasions / Contusions Psych: Hallucinations / Anxiety / Depression Neuro: Weakness / Numbness / Tingling / Facial Droop / Dysphagia Internal Medicine - CN: Meds Albuterol Sulfate [Proventil Inhaler] 2 puff IH Q6HR PRN 12/10/18 [History] DULoxetine [Cymbalta] 60 mg PO DAILY 12/10/18 [History] Docusate [Colace] 100 mg PO BID 12/10/18 [History] Gabapentin [Neurontin] 300 mg PO TID 12/10/18 [History] Ipratropium [Atrovent Inhaler] 2 inh IH Q6HR 12/10/18 [History] Morphine Sulfate ER (12 HR) [MS Contin] 1 tab PO Q12HR 12/10/18 [History] Olodaterol HCl [Striverdi Respimat] 2 inh IH DAILY 12/10/18 [History] Polyvinyl Alcohol [Artificial Tears] 1 drop OP TID 12/10/18 [History] Theophylline Anhydrous [Theophylline] 200 mg PO DAILY 12/10/18 [History] Allergy/AdvReac Type Severity Reaction Status Date / Time acetaminophen [From Percocet] Allergy Diarrhea Verified 12/10/18 09:48 ampicillin Allergy Diarrhea Verified 12/10/18 09:48 oxycodone [From Percocet] Allergy Diarrhea Verified 12/10/18 09:48 Penicillins [PCN] Allergy Diarrhea Verified 12/10/18 09:48 Hospitalist - CN: Exam - Constitutional Vitals: Temp Pulse Resp BP Pulse Ox 97.8 F 81 16 133/88 94 12/10/18 14:24 12/10/18 14:24 12/10/18 15:47 12/10/18 14:24 12/10/18 15:47 Exam: General: Ill-appearing and in no acute distress HEENT: No erythema of posterior pharynx. No exudates. Lymphatics: No mandibular or cervical lymphadenopathy Cardiovascular: RRR. No murmurs. No chest wall tenderness. Lungs: Clear to auscelltation bilaterally. Regular chest rise. Abdomen: Non-tender. No rebound or gaurding. Nl bowel sounds. Extremities: No edema. 2+ pulses radial and pedal pulses Skin: No rahses, abrasions, or contusions. Nl cap refill. Psych: Nl attention. 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 5/5 strength. Sensation to light touch and pinprick intact. No tremors. Internal Medicine - CN: Reslt - Labs CBC & Chem 7: 12/10/18 04:14 12/10/18 04:14 Labs: Short CBC 12/09/18 12/10/18 Range/Units 17:35 04:14 WBC 9.5 9.2 (4.3-11.1) K/mcL Hgb 15.3 14.8 (12.9-16.9) g/dL Hct 44.7 43.0 (37.5-50.1) % Plt Count 271 268 (140-400) K/mcL BMP 12/10/18 04:14 Sodium 135 L Potassium 3.6 Chloride 104 Carbon Dioxide 23 BUN 8 Creatinine 0.84 Glucose 93 Calcium 8.2 L Cardiac Enzymes 12/10/18 Range/Units 04:14 Troponin I 16.59 H* (< 0.04) ng/mL - ABG Interpretation ABG results: PT/INR, D-dimer PT 12.6 Seconds (9.4-12.1) H 12/09/18 14:44 - Impressions Impressions Chest X-Ray 12/09/18 14:37 IMPRESSION: Mild cephalization the pulmonary vascularity may be secondary to congestive changes. Early patchy infiltrates in the lung bases with bilateral pleural effusions may be secondary to congestive changes however cannot exclude the possibility of overlying pneumonia. D/ / Dileep Machado MD / Dileep Machado MD Interpreting Provider: Dileep Machado MD Echocardiogram 12/09/18 16:07 Impressions: Technically sub-optimal due to poor echocardiographic windows. Not all LV segments were visualized. LVEF is moderate to severely reduced with global and segmental left ventricular systolic dysfunction. Mild left ventricular diastolic dysfunction. Definity echo contrast was not used. Patient declined. The right ventricle was not well visualized The valves were not well visualized but no obvious significant dysfunction appreciated Unable to estimate RVSP due to lack of TR jet. Left Ventricular Wall Motion: Rest Echo Findings The apical septal, mid inferior septal, basal inferior septal, mid anterior septal and basal anterior septal villanueva were hypokinetic. The mid inferior, mid inferior lateral and basal inferior lateral villanueva were akinetic. The apical anterior, mid anterior, basal anterior, apical lateral and mid anterior lateral villanueva were not visualized. All other wall segments showed normal motion. Findings: Study Quality * Technically sub-optimal due to poor echocardiographic windows. ECG Findings * Sinus rhythm with BBB. Left Ventricle * Not all LV segments were visualized. LVEF is moderate to severely reduced with global and segmental left ventricular systolic dysfunction. * Mild left ventricular diastolic dysfunction. * Definity echo contrast was not used. Patient declined. * Atypical septal motion consistent with bundle branch block. Right Ventricle * The right ventricle was not well visualized Left Atrium * Mild to moderately dilated left atrium. Right Atrium * Right atrium is not well visualized. Interatrial Septum * Interatrial septum not well evaluated. Aortic Valve * Aortic valve not well visualized. * No aortic regurgitation. * No aortic stenosis. Mitral Valve * Mitral valve not well visualized. * No mitral regurgitation. * No mitral stenosis. Tricuspid Valve * Trace tricuspid regurgitation. * No tricuspid stenosis. * Unable to estimate RVSP due to lack of TR jet. * Tricuspid valve not well visualized. Pulmonic Valve * Pulmonic valve not well visualized. Aorta * Normally sized aortic root. Pericardium * The pericardium appears normal. IVC * The IVC is not well evaluated. Pulmonary Artery * Pulmonary artery not well visualized. Chest X-Ray 12/10/18 12:23 IMPRESSION: Interval improvement in CHF. Persistent small effusions with bibasilar atelectasis. D/ / Onur Todd MD / Onur Todd MD Interpreting Provider: Onur Todd MD Consult Discharge Plan - Plan [facility]errals: [facility] [Primary Care Provider] -
[2018-12-10] MEDS ORDERED: *HR* LORazepam 2 MG/ML VIAL IVP PRN ×3 (17:47)
[2018-12-10] MEDS ORDERED: *HR* Promethazine 25 MG/ML VIAL IVP PRN (17:47)
[2018-12-10] MEDS ORDERED: Perflutren Lipid Microsphere 1.3 ML in 0.9 % Sodium Chloride 8.7 ML IVP ONE (18:41)
[2018-12-10] MEDS ORDERED: traZODone 50 MG TABLET PO PRN (18:51)
[2018-12-10] MEDS: *HR* Heparin 5,000 UNIT/ML VIAL SQ SCH (20:18)
[2018-12-10] MEDS: Thiamine (B-1) 100 MG TABLET PO SCH (20:18)
[2018-12-11] MEDS ORDERED: Ondansetron 4 MG/2 ML VIAL IVP SCH
[2018-12-11] MEDS: Morphine Sulfate ER (12 HR) 15 MG TABLET.ER PO SCH ×2 (00:21→11:19)
[2018-12-11] MEDS: Ondansetron 4 MG/2 ML VIAL IVP SCH ×3 (00:21→15:22)
[2018-12-11 02:25] LABS: Hematocrit 43.8 % (37.5-50.1); Hemoglobin 15.2 g/dL (12.9-16.9); Mean Corpuscular HGB Conc 34.7 g/dL (31.6-35.5); Mean Corpuscular Hemoglobin 34.2 pg (28.0-33.3); Mean Corpuscular Volume 98.4 fL (83.0-100.0); Mean Platelet Volume 11.2 fL (9.4-12.4); Platelet Count 262 K/mcL (140-400); Red Blood Count 4.45 M/mcL (4.19-5.50); Red Cell Distribution Width 12.9 % (11.5-14.5); White Blood Count 9.5 K/mcL (4.3-11.1)
[2018-12-11 02:43] LABS: BUN/Creatinine Ratio 10 (6-26); Blood Urea Nitrogen 10 mg/dL (8-23); Calcium 8.4 mg/dL (8.6-10.3); Carbon Dioxide 21 mEq/L (23-29); Chloride 106 mEq/L (98-107); Glucose 88 mg/dL (70-105); Osmolality,Calculated 278 (280-300); Potassium 3.6 mEq/L (3.5-5.1); Sodium 135 mEq/L (136-145); eGFR For African Americans > 60 (> 60); eGFR For Non-African Americans > 60 (> 60)
[2018-12-11] MEDS: Ipratropium 1 PUFF INHALER IH SCH ×3 (04:39→16:24)
[2018-12-11] MEDS: *HR* Heparin 5,000 UNIT/ML VIAL SQ SCH ×2 (05:46→17:40)
--- NOTE | 2018-12-11 07:52 | Internal Med Progress Note ---
Hospitalist Progress Note - Encounter Date of Encounter: 12/11/18 Time of Encounter: 07:51 - Subjective Interval History: Patient seen and examined this morning at bedside. No acute overnight events. No further episodes of nausea vomiting or diarrhea. Denies any fevers chills palpitation chest pain or shortness of breath. - Exam Vitals: Temp Pulse Resp BP Pulse Ox 97.7 F 72 16 127/70 90 12/11/18 07:13 12/11/18 07:13 12/11/18 07:13 12/11/18 07:13 12/11/18 07:13 Exam: General: In no acute distress. Respiratory exam: CTAB. no accessory muscle use, rales, rhonchi, wheezes Cardiovascular exam: RRR, +S1, +S2. no murmur, gallop, rubs. GI/Abdominal exam: Non-tender, Non-distended, normal bowel sounds, soft, no peritoneal signs. Extremities exam: no pedal edema, pulses palpable in b/l lower extremities. no calf tenderness Neurological exam: CN II-XII intact, AO X3, no focal deficits. Skin exam: No worrisome skin rash - Assessment and Plan (1) NSTEMI (non-ST elevated myocardial infarction) Current Visit: Yes Status: Acute (2) Alcohol withdrawal Current Visit: Yes Status: Acute (3) Diarrhea Current Visit: Yes Status: Acute (4) HFrEF (heart failure with reduced ejection fraction) Current Visit: Yes Status: Acute (5) Insomnia Current Visit: Yes Status: Acute - Summary of Assessment and Plan Summary of Assessment and Plan: Assessment Acute Alcohol withdrawal Diarrhea NSTEMI Chronic CAD Cardiomyopathy alcohol abuse Plan - Nausea, vomiting resolved. Diarrhea resolved as well. C. difficile pending. We will cancel if no more episodes of diarrhea. Less likely to be infectious etiology. Alcohol withdrawal possibly underlying cause given patient drinks about 10-12 beers a day for many years. Denies previous episodes of withdrawal. replete magnesium - c/w CIWA protocol with prn ativan. prn zofran for nausea. - Diarrhea resolved. - HFrEF-Treatment per primary - NSTEMI- s/p LHC with LIBRADO to RCA. Treatment per primary. - Time Spent with Patient Total time spent is greater than 50% in coordination of care (as documented) at patient's floor/unit and/or counseling patient: Internal Medicine: Result - Labs CBC & Chem 7: 12/11/18 01:37 12/11/18 01:37 Labs: Short CBC 12/11/18 Range/Units 01:37 WBC 9.5 (4.3-11.1) K/mcL Hgb 15.2 (12.9-16.9) g/dL Hct 43.8 (37.5-50.1) % Plt Count 262 (140-400) K/mcL BMP 12/11/18 01:37 Sodium 135 L Potassium 3.6 Chloride 106 Carbon Dioxide 21 L BUN 10 Creatinine 1.05 Glucose 88 Calcium 8.4 L - ABG Interpretation ABG results: PT/INR, D-dimer PT 12.6 Seconds (9.4-12.1) H 12/09/18 14:44 - Impressions Impressions Chest X-Ray 12/09/18 14:37 IMPRESSION: Mild cephalization the pulmonary vascularity may be secondary to congestive changes. Early patchy infiltrates in the lung bases with bilateral pleural effusions may be secondary to congestive changes however cannot exclude the possibility of overlying pneumonia. D/ / Dileep Machado MD / Dileep Machado MD Interpreting Provider: Dileep Machado MD Echocardiogram 12/09/18 16:07 Impressions: Technically sub-optimal due to poor echocardiographic windows. Not all LV segments were visualized. LVEF is moderate to severely reduced with global and segmental left ventricular systolic dysfunction. Mild left ventricular diastolic dysfunction. Definity echo contrast was not used. Patient declined. The right ventricle was not well visualized The valves were not well visualized but no obvious significant dysfunction appreciated Unable to estimate RVSP due to lack of TR jet. Left Ventricular Wall Motion: Rest Echo Findings The apical septal, mid inferior septal, basal inferior septal, mid anterior septal and basal anterior septal villanueva were hypokinetic. The mid inferior, mid inferior lateral and basal inferior lateral villanueva were akinetic. The apical anterior, mid anterior, basal anterior, apical lateral and mid anterior lateral villanueva were not visualized. All other wall segments showed normal motion. Findings: Study Quality * Technically sub-optimal due to poor echocardiographic windows. ECG Findings * Sinus rhythm with BBB. Left Ventricle * Not all LV segments were visualized. LVEF is moderate to severely reduced with global and segmental left ventricular systolic dysfunction. * Mild left ventricular diastolic dysfunction. * Definity echo contrast was not used. Patient declined. * Atypical septal motion consistent with bundle branch block. Right Ventricle * The right ventricle was not well visualized Left Atrium * Mild to moderately dilated left atrium. Right Atrium * Right atrium is not well visualized. Interatrial Septum * Interatrial septum not well evaluated. Aortic Valve * Aortic valve not well visualized. * No aortic regurgitation. * No aortic stenosis. Mitral Valve * Mitral valve not well visualized. * No mitral regurgitation. * No mitral stenosis. Tricuspid Valve * Trace tricuspid regurgitation. * No tricuspid stenosis. * Unable to estimate RVSP due to lack of TR jet. * Tricuspid valve not well visualized. Pulmonic Valve * Pulmonic valve not well visualized. Aorta * Normally sized aortic root. Pericardium * The pericardium appears normal. IVC * The IVC is not well evaluated. Pulmonary Artery * Pulmonary artery not well visualized. Chest X-Ray 12/10/18 12:23 IMPRESSION: Interval improvement in CHF. Persistent small effusions with bibasilar atelectasis. D/ / Onur Todd MD / Onur Todd MD Interpreting Provider: Onur Todd MD - VTE Reasons for not Prescribing Prophylaxis: Not indicated-Anticoagulated or INR therapeutic Consult Discharge Plan - Plan [facility]errals: [facility] [Primary Care Provider] - (2) Alcohol withdrawal Qualifiers: Complication of substance-induced condition: uncomplicated Qualified Code(s): F10.230 - Alcohol dependence with withdrawal, uncomplicated (3) Diarrhea Qualifiers: Diarrhea type: unspecified type Qualified Code(s): R19.7 - Diarrhea, unspecified (4) HFrEF (heart failure with reduced ejection fraction) Qualifiers: Heart failure chronicity: acute Qualified Code(s): I50.21 - Acute systolic (congestive) heart failure (5) Insomnia Qualifiers: Insomnia type: primary Qualified Code(s): F51.01 - Primary insomnia
[2018-12-11] MEDS: Gabapentin 300 MG CAPSULE PO SCH ×2 (08:08→15:17)
[2018-12-11] MEDS: Thiamine (B-1) 100 MG TABLET PO SCH (08:08)
[2018-12-11] MEDS: Artificial Tears SOLN 15 ML BOTTLE OP SCH ×2 (08:10→15:18)
[2018-12-11] MEDS ORDERED: Aspirin Enteric Coated 81 MG Tablet PO SCH (09:00)
[2018-12-11] MEDS ORDERED: Nicotine 21 MG PATCH.TD24 TD SCH (09:00)
[2018-12-11] MEDS ORDERED: STRIVERDI IH SCH ×2 (09:00)
[2018-12-11 10:05] LABS: Magnesium 1.4 mg/dL (1.6-2.6)
[2018-12-11] MEDS ORDERED: Furosemide 20 MG TABLET PO SCH (13:37)
--- NOTE | 2018-12-11 15:12 | Discharge Summary ---
Orders not resulted at time of discharge: Pending orders 12/10/18 18:48 GI Panel,Stool [MOLMIC] Stat Date of Encounter: 12/11/18 Time of Encounter: 14:56 - Discharge Diagnosis (1) NSTEMI (non-ST elevated myocardial infarction) Priority: Primary Status: Acute (2) CAD (coronary artery disease) Priority: Primary Status: Acute Qualifiers: Coronary Disease-Associated Artery/Lesion type: [place] artery [place] vs. transplanted heart: [place] heart Associated angina: without angina Qualified Code(s): I25.10 - Atherosclerotic heart disease of [place] coronary artery without angina pectoris (3) Cardiomyopathy Priority: Secondary Status: Acute Qualifiers: Cardiomyopathy type: ischemic Qualified Code(s): I25.5 - Ischemic cardiomyopathy (4) Tobacco abuse Priority: Secondary Status: Acute (5) Acute CHF (congestive heart failure) Priority: Secondary Status: Acute Qualifiers: Heart failure type: combined systolic and diastolic Qualified Code(s): I50.41 - Acute combined systolic (congestive) and diastolic (congestive) heart failure - Hospital Course Hospital course: Mr. Franco is a 68 year old male that [facility] with [facility] pain with initial troponin of 0.12, then 16.59. Non-STEMI, taken urgently for [facility] 12/09, Single vessel coronary artery disease. There is moderate to severe global LV Dysfunction EF 30%. Patient had successful PTCA/Drug-Eluting Stent placement in the distal RCA. Patient had successful PTCA in the R PDA. DAPT (ASA and Plavix) uninterrupted x 1 year. Pt verbalizes understanding. Continue Statin, BB, ACEi. Right femoral access site healed well--no bleeding, hematoma or ecchymosis noted. Labs and vitals stable. No events on tele. TTE with definity complete s/p [facility] 12/10 showed improved EF--45-50%. Mild LV systolic dysfunction. Despite use of contrast, segmental wall motion suboptimal. Reported dyspnea 12/10. CXR interval improvement in CHF compared to admission, small bilateral effusions. One time dose IV Lasix given, then started PO maintenance dosing 20mg daily. Euvolemic on exam. CHF teaching, Na and fluid re striction discussed. 6 minute walk test completed--qualifies for home O2--3L NC. Ordered. Pt had diarrhea yesterday, was thought to be withdrawing as he admitted to 12 pack of beer/day. Hospitalist was consulted, GI panel ordered. No diarrhea since last night. Okay to d/c per hospitalist. Smoking and alcohol cessation counseling given. Plan to d/c home in stable condition once O2 can be delivered to home. Will coordinate outpt f/up in 1 week. Time spent discussing smoking cessation with patient: 3 to 10 minutes - Time Spent with Patient Total time spent providing and/or coordinating discharge services: Less than 30 minutes - Discharge Medications Prescriptions: New Aspirin Enteric Coated [Aspirin EC] 81 mg PO DAILY #30 tablet. Atorvastatin Calcium 80 mg PO QPM #30 tablet Furosemide [Lasix] 20 mg PO DAILY #30 tablet Metoprolol [Lopressor] 25 mg PO BID #60 tablet Nicotine Patch [Nicoderm] 21 mg TD DAILY #28 patch.td24 Nitroglycerin 0.4 mg SL Q5MPRN PRN #30 tab.subl PRN Reason: Chest Pain Clopidogrel [Plavix] 75 mg PO DAILY #30 tablet Potassium Chloride 20 meq PO DAILY #30 tab.er.prt Lisinopril [Zestril] 10 mg PO DAILY #30 tablet Continued Polyvinyl Alcohol [Artificial Tears] 1 drop OP TID Olodaterol HCl [Striverdi Respimat] 2 inh IH DAILY Morphine Sulfate ER (12 HR) [MS Contin] 1 tab PO Q12HR Ipratropium [ATROVENT Inhaler] 2 inh IH Q6HR Gabapentin [Neurontin] 300 mg PO TID DULoxetine [Cymbalta] 60 mg PO DAILY Docusate [Colace] 100 mg PO BID Albuterol Sulfate [Proventil Inhaler] 2 puff IH Q6HR PRN PRN Reason: sob/wheezing Theophylline Anhydrous [Theophylline] 200 mg PO DAILY Home Medications: Albuterol Sulfate [Proventil Inhaler] 2 puff IH Q6HR PRN 12/10/18 [History] DULoxetine [Cymbalta] 60 mg PO DAILY 12/10/18 [History] Docusate [Colace] 100 mg PO BID 12/10/18 [History] Gabapentin [Neurontin] 300 mg PO TID 12/10/18 [History] Ipratropium [ATROVENT Inhaler] 2 inh IH Q6HR 12/10/18 [History] Morphine Sulfate ER (12 HR) [MS Contin] 1 tab PO Q12HR 12/10/18 [History] Olodaterol HCl [Striverdi Respimat] 2 inh IH DAILY 12/10/18 [History] Polyvinyl Alcohol [Artificial Tears] 1 drop OP TID 12/10/18 [History] Theophylline Anhydrous [Theophylline] 200 mg PO DAILY 12/10/18 [History] Aspirin Enteric Coated [Aspirin EC] 81 mg PO DAILY #30 tablet.dr 12/11/18 [Rx] Atorvastatin Calcium 80 mg PO QPM #30 tablet 12/11/18 [Rx] Clopidogrel [Plavix] 75 mg PO DAILY #30 tablet 12/11/18 [Rx] Furosemide [Lasix] 20 mg PO DAILY #30 tablet 12/11/18 [Rx] Lisinopril [Zestril] 10 mg PO DAILY #30 tablet 12/11/18 [Rx] Metoprolol [Lopressor] 25 mg PO BID #60 tablet 12/11/18 [Rx] Nicotine Patch [Nicoderm] 21 mg TD DAILY #28 patch.td24 12/11/18 [Rx] Nitroglycerin 0.4 mg SL Q5MPRN PRN #30 tab.subl 12/11/18 [Rx] Potassium Chloride 20 meq PO DAILY #30 tab.er.prt 12/11/18 [Rx] Allergies/Adverse Reactions: Allergy/AdvReac Type Severity Reaction Status Date / Time acetaminophen [From Percocet] Allergy Diarrhea Verified 12/10/18 09:48 ampicillin Allergy Diarrhea Verified 12/10/18 09:48 oxycodone [From Percocet] Allergy Diarrhea Verified 12/10/18 09:48 Penicillins [PCN] Allergy Diarrhea Verified 12/10/18 09:48 Date of admission: 12/09/18 15:10 [facility] Consults: 12/09/18 16:07 Consult to Cardiac Rehabilitation-Phase1 [CONS] Routine Comment: Reason for Consult: NSTEMI, s/p stent Call Completed: No 12/09/18 16:13 Consult to Cardiac Rehabilitation-Phase1 [CONS] Routine Comment: Reason for Consult: AMI Call Completed: Yes Consult to Nurse Navigator [CONS] Routine Comment: Discharging clinician: Nathan Francisco Anticipated date of discharge: 12/11/18 Physical Examination Vital Signs, Last 4 Hours Temp Pulse Resp BP Pulse Ox 12/11/18 14:19 90 12/11/18 11:41 97.8 F 74 18 114/70 94 Vital Signs Temp Pulse Resp BP Pulse Ox 12/11/18 14:19 90 12/11/18 11:41 97.8 F 74 18 114/70 94 12/11/18 10:52 16 93 12/11/18 07:13 97.7 F 72 16 127/70 90 12/11/18 05:57 98.7 F 72 16 123/74 91 12/11/18 04:41 18 90 12/11/18 00:42 97.4 F L 67 15 128/91 92 12/10/18 23:12 16 92 12/10/18 20:40 97.2 F L 17 147/92 96 12/10/18 15:47 16 94 Intake and Output 12/10/18 12/11/18 12/11/18 23:59 07:59 15:59 Other: Weight 75.3 kg Patient Weight 12/11/18 23:59 Weight 75.3 kg General: Conversant, No Apparent Distress HEENT: Atraumatic, Normocephaly, Mucus Membranes Moist Neck: No JVD, Normal carotid pulses Cardiac: Reg Rate and Rhythm, Normal S1 and S2, No Murmur Lungs: Other (diminished) Neuro: Alert and responsive, No focal deficits noted Abdomen: Soft, Non-Tender Skin: Other (right femoral access site healing well. No bleeding, hematoma or ecchymosis noted.) Musculoskeletal: No Chest Wall Tenderness Extremities: No Clubbing, No Cyanosis, No Edema, Normal Pulses - Patient Status Disposition: Home, Self-Care Condition: Fair Functional capacity at discharge: independent ambulation Overall status at discharge: patient is progressing back to baseline - Discharge Instructions [facility] With: [facility] [Primary Care Provider[facility] - Forms: ED Satisfaction Letter Additional Instructions: RISK FACTORS: STOP SMOKING: If you smoke, STOP. Smoking or tobacco use significantly increases your risk of heart disease because nicotine causes the arteries to narrow or constrict. It also causes fats to stick to the artery. Your chances of having a heart attack are greatly increased if you continue to smoke. For more information, call the education line for smoking cessation 4-536-WMZATDD EAT A LOW FAT/CHOLESTEROL/SODIUM DIET: This diet may help reduce your chances of having a heart attack. LIFTING: Avoid lifting anything more than 10 pounds for 5-7 days Prior to straining, laughing, sneezing and/or coughing, apply manual pressure directly over insertion site. ACTIVITY: You may walk or climb stairs as tolerated You can resume sexual activity as tolerated In general, you are encouraged to engage in a minimum of 30 minutes or more of moderate intensity physical activity, such as brisk walking, daily or at least 3-4 times weekly BATHING Do not submerge the site into water (bath tub, hot tub, swimming pool) for 1 week. This can be a source for infection into the blood stream. You may shower after 24 hours SITE CARE: After 24 hours, you may remove the dressing and leave the site open to air. Keep the site clean and dry. Clean gently and pat dry. You can expect bruising and tenderness that gradually resolve within a week or two. Return to work as instructed per your physician Resume driving as instructed per physician Keep all scheduled follow up appointments Resume medications as instructed IMPORTANT: If prescribed a Platelet Aggregation Inhibitor such as, Plavix, Brilinta or Effient: Duration of therapy is minimum one year These medications are often used in combination with Aspirin in prevention of future heart attacks Never discontinue unless consult with your [place] STROKE (CVA) Risk factors for a stroke are: Age, cigarette smoking, diabetes, excessive alcohol consumption, family history, high blood pressure, overweight, physical inactivity, prior stroke, heart attack, diagnosis of carotid artery stenosis or other artery disease. Warning signs: Sudden numbness or weakness of the face, arm or leg; especially on one side of the body, sudden confusion, trouble speaking or understanding, sudden trouble seeing in one or both eyes, sudden trouble walking, dizziness, loss of balance or coordination, sudden severe headache with no cause. Call 911 or go to the Emergency Room. CONGESTIVE HEART FAILURE: If you have been diagnosed with Congestive Heart Failure (CHF) and your symptoms return, make an appointment with your physician Weigh yourself daily. Notify your physician if you have a weight gain of two or more pounds in one day or five or more pounds in one week. If you experience any difficulty breathing, please call 911 BLEEDING: Although the risk of bleeding is minimal, it can happen. If you have any bleeding from the site, apply firm pressure above the puncture site for 10-15 minutes. If the bleeding does not stop, continue manual pressure and call 911 CARDIAC REHABILITATION: If you have had a heart attack or cardiac stents placed, please ask your manager loan if Cardiac Rehabilitation is right for you. Cardiac Rehabilitation is recommended, beneficial to your health and can improve the following: strengthen your heart, improve ejection fraction, weight reduction, decrease cholesterol levels, lower blood pressure, lower blood sugar, improve stamina and enhance self-image. If you have any questions please call [facility] at [phone]. Contact your physician if: You develop a fever greater than 101 degrees Fahrenheit Your site becomes reddened or has any drainage You have an increase in pain or burning at the site or if a large knot forms at the site. If you experience chest pain, shortness of breath, dizziness, or extreme tiredness, stop the activity and rest. Please notify your physicians office if you experience any of these symptoms and they are not relieved by rest please call 911! - Diet and Activity Activity: increase activity as tolerated Diet: low fat, low cholesterol, low salt diet - VTE Reasons for not Prescribing Prophylaxis: Not indicated-Anticoagulated or INR therapeutic
[2018-12-11 16:39] VITALS: BP 127/85
== END 2018-12-11 19:36 | disposition home or self-care (01) | DRG 246 ==
LOC: EMEROOARM 14:31 → ICNU 15:05 → MERGE 15:10 → SUATTDRO 15:10 → ICNU 15:10 → 2NENU 12-10 14:11
PROVIDERS: ADMIT Internal Medicine; ATTEND Internal Medicine

== ENCOUNTER 2020-08-23 17:21 | Inpatient (IN) ==
[2020-08-23] MEDS ORDERED: Naloxone 0.4 MG/ML INJ IVP PRN (20:11)
[2020-08-23] MEDS ORDERED: Ondansetron 4 MG/2 ML VIAL IVP PRN (20:11)
[2020-08-23] MEDS ORDERED: *HR* LORazepam 2 MG/ML VIAL IVP PRN ×3 (20:27)
[2020-08-23 20:49] LABS: Basophils % 0.2 %; Eosinophils % 0.2 %; Hematocrit 43.3 % (37.5-50.1); Hemoglobin 15.3 g/dL (12.9-16.9); Immature Granulocytes % 0.4 % (0-4); Lymphocytes # 0.5 K/mcL (0.6-4.6); Lymphocytes % 10.4 %; Mean Corpuscular HGB Conc 35.3 g/dL (31.6-35.5); Mean Corpuscular Hemoglobin 35.2 pg (28.0-33.3); Mean Corpuscular Volume 99.5 fL (83.0-100.0); Mean Platelet Volume 10.9 fL (9.4-12.4); Monocytes # 0.1 K/mcL (0.0-1.3); Monocytes % 1.8 %; Neutrophils # 3.9 K/mcL (1.6-8.9); Platelet Count 235 K/mcL (140-400); Red Blood Count 4.35 M/mcL (4.19-5.50); Red Cell Distribution Width 12.3 % (11.5-14.5); White Blood Count 4.5 K/mcL (4.3-11.1)
[2020-08-23 20:58] LABS: INR 1.2
[2020-08-23 21:01] LABS: Activated Partial Thrombo Time 31.4 Seconds (26.0-36.0)
[2020-08-23 21:09] LABS: Alanine Aminotransferase 36 Units/L (7-52); Albumin 3.9 g/dL (3.5-5.7); Alkaline Phosphatase 127 Units/L (34-104); Aspartate Amino Transferase 40 Units/L (13-39); BUN/Creatinine Ratio 13 (6-26); Bilirubin,Total 1.1 mg/dL (0.3-1.0); Blood Urea Nitrogen 15 mg/dL (8-23); Calcium 7.6 mg/dL (8.6-10.3); Carbon Dioxide 26 mEq/L (23-29); Chloride 97 mEq/L (98-107); Globulin 3.8 g/dL (2.4-3.5); Glucose 135 mg/dL (70-105); Osmolality,Calculated 283 (280-300); Potassium 4.1 mEq/L (3.5-5.1); Sodium 135 mEq/L (136-145); Total Protein 7.7 g/dL (6.4-8.9); eGFR For African Americans > 60 (> 60); eGFR For Non-African Americans > 60 (> 60)
[2020-08-23] MEDS: Ipratropium/Albuterol Neb 3 ML IH SCH (23:15)
[2020-08-23] MEDS: Azithromycin 500 MG in 0.9 % Sodium Chloride 250 ML IVPB SCH (23:31)
[2020-08-23] MEDS: MethylPREDNISolone 40 MG/ML VIAL IVP SCH (23:34)
[2020-08-23] MEDS: *HR* Heparin 5,000 UNIT/ML VIAL SQ SCH (23:34)
[2020-08-23] MEDS: Nicotine 14 MG PATCH.TD24 TD SCH (23:35)
[2020-08-24 02:59] LABS: Hematocrit 42.3 % (37.5-50.1); Mean Corpuscular HGB Conc 35.5 g/dL (31.6-35.5); Mean Corpuscular Hemoglobin 34.6 pg (28.0-33.3); Mean Corpuscular Volume 97.5 fL (83.0-100.0); Platelet Count 244 K/mcL (140-400); Red Blood Count 4.34 M/mcL (4.19-5.50); Red Cell Distribution Width 12.1 % (11.5-14.5)
[2020-08-24 03:02] LABS: White Blood Count 7.3 K/mcL (4.3-11.1)
[2020-08-24] MEDS: Ipratropium/Albuterol Neb 3 ML IH SCH ×7 (03:32→23:50)
[2020-08-24 03:34] LABS: BUN/Creatinine Ratio 17 (6-26); Blood Urea Nitrogen 21 mg/dL (8-23); Calcium 7.3 mg/dL (8.6-10.3); Carbon Dioxide 22 mEq/L (23-29); Chloride 100 mEq/L (98-107); Chol/HDL Ratio 3.6 (0-4.9); Cholesterol 128 mg/dL (< 200); Glucose 150 mg/dL (70-105); HDL Cholesterol 36 mg/dL (40-59); LDL Cholesterol,Calculated 79 mg/dL (< 100); Osmolality,Calculated 284 (280-300); Potassium 3.8 mEq/L (3.5-5.1); Sodium 134 mEq/L (136-145); Triglycerides 67 mg/dL (< 150); eGFR For African Americans > 60 (> 60); eGFR For Non-African Americans 58 (> 60)
[2020-08-24 03:35] LABS: Troponin I < 0.03 ng/mL (< 0.04)
[2020-08-24] MEDS: *HR* Heparin 5,000 UNIT/ML VIAL SQ SCH ×2 (05:52→11:46)
[2020-08-24] MEDS: MethylPREDNISolone 40 MG/ML VIAL IVP SCH ×4 (05:52→23:14)
[2020-08-24] MEDS: Thiamine (B-1) 200 MG in 0.9 % Sodium Chloride 50 ML IVPB SCH (09:11)
[2020-08-24] MEDS: Folic Acid 1 MG TABLET PO SCH (09:11)
[2020-08-24] MEDS: Nicotine 14 MG PATCH.TD24 TD SCH (09:11)
[2020-08-24] MEDS: Aspirin Enteric Coated 81 MG Tablet PO SCH (12:52)
[2020-08-24] MEDS ORDERED: Ipratropium Neb 0.5 MG NEBULIZER IH PRN (13:59)
[2020-08-24] MEDS ORDERED: Perflutren Lipid Microsphere 1.3 ML in 0.9 % Sodium Chloride 8.7 ML IVP PRN (14:00)
[2020-08-24] MEDS: Gabapentin 300 MG CAPSULE PO SCH ×2 (16:12→20:09)
[2020-08-24] MEDS ORDERED: Ipratropium 1 PUFF INHALER IH SCH (17:00)
[2020-08-24] MEDS ORDERED: Ibuprofen 400 MG TABLET PO PRN (17:52)
[2020-08-24] MEDS: Azithromycin 500 MG in 0.9 % Sodium Chloride 250 ML IVPB SCH (23:14)
[2020-08-25 01:55] LABS: Hematocrit 36.1 % (37.5-50.1); Hemoglobin 12.8 g/dL (12.9-16.9); Immature Granulocytes % 0.6 % (0-4); Lymphocytes # 0.5 K/mcL (0.6-4.6); Lymphocytes % 3.3 %; Mean Corpuscular HGB Conc 35.5 g/dL (31.6-35.5); Mean Corpuscular Hemoglobin 34.9 pg (28.0-33.3); Mean Corpuscular Volume 98.4 fL (83.0-100.0); Mean Platelet Volume 11.4 fL (9.4-12.4); Monocytes # 0.3 K/mcL (0.0-1.3); Monocytes % 2.1 %; Neutrophils # 12.7 K/mcL (1.6-8.9); Platelet Count 258 K/mcL (140-400); Red Blood Count 3.67 M/mcL (4.19-5.50); Red Cell Distribution Width 12.3 % (11.5-14.5); White Blood Count 13.5 K/mcL (4.3-11.1)
[2020-08-25 02:11] LABS: BUN/Creatinine Ratio 27 (6-26); Blood Urea Nitrogen 35 mg/dL (8-23); Calcium 6.9 mg/dL (8.6-10.3); Carbon Dioxide 22 mEq/L (23-29); Chloride 100 mEq/L (98-107); Glucose 148 mg/dL (70-105); Magnesium 0.6 mg/dL (1.6-2.6); Osmolality,Calculated 285 (280-300); Phosphorous 2.2 mg/dL (2.7-4.5); Potassium 3.9 mEq/L (3.5-5.1); Sodium 132 mEq/L (136-145); eGFR For African Americans > 60 (> 60); eGFR For Non-African Americans 55 (> 60)
[2020-08-25] MEDS: Ipratropium/Albuterol Neb 3 ML IH SCH ×6 (04:50→23:02)
[2020-08-25] MEDS: MethylPREDNISolone 40 MG/ML VIAL IVP SCH ×3 (06:24→21:01)
[2020-08-25] MEDS: Gabapentin 300 MG CAPSULE PO SCH ×3 (10:46→21:02)
[2020-08-25] MEDS: Aspirin Enteric Coated 81 MG Tablet PO SCH (10:46)
[2020-08-25] MEDS: Folic Acid 1 MG TABLET PO SCH (10:47)
[2020-08-25] MEDS: Thiamine (B-1) 200 MG in 0.9 % Sodium Chloride 50 ML IVPB SCH (10:49)
[2020-08-25] MEDS: Nicotine 14 MG PATCH.TD24 TD SCH (10:49)
[2020-08-25 19:20] LABS: Bilirubin,Urine Negative (Negative); Blood,Urine Negative (Negative); Clarity,Urine Clear (Clear); Color,Urine Yellow (Yellow); Glucose,Urine (UA) Normal (Normal); Ketones,Urine Negative (Negative); Leukocyte Esterase,Urine Negative (Negative); Nitrite,Urine Negative (Negative); Protein,Urine Trace mg/dL (Neg-Trace); Specific Gravity,Urine 1.023 (1.010-1.025); Urobilinogen,Urine Normal (Normal)
[2020-08-25] MEDS: Azithromycin 500 MG in 0.9 % Sodium Chloride 250 ML IVPB SCH (21:01)
[2020-08-26 03:48] LABS: Basophils % 0.1 %; Hematocrit 36.7 % (37.5-50.1); Hemoglobin 12.3 g/dL (12.9-16.9); Immature Granulocytes % 1.5 % (0-4); Lymphocytes # 0.3 K/mcL (0.6-4.6); Lymphocytes % 2.3 %; Mean Corpuscular HGB Conc 33.5 g/dL (31.6-35.5); Mean Corpuscular Hemoglobin 34.3 pg (28.0-33.3); Mean Corpuscular Volume 102.2 fL (83.0-100.0); Monocytes # 0.2 K/mcL (0.0-1.3); Monocytes % 1.6 %; Neutrophils # 11.7 K/mcL (1.6-8.9); Platelet Count 257 K/mcL (140-400); Red Blood Count 3.59 M/mcL (4.19-5.50); Red Cell Distribution Width 12.2 % (11.5-14.5); Segmented Neutrophils % 94.5 %; White Blood Count 12.4 K/mcL (4.3-11.1)
[2020-08-26] MEDS: Ipratropium/Albuterol Neb 3 ML IH SCH ×6 (04:04→23:33)
[2020-08-26 04:12] LABS: Alanine Aminotransferase 85 Units/L (7-52); Albumin 3.3 g/dL (3.5-5.7); Albumin/Globulin Ratio 1.1 (1.1-2.2); Alkaline Phosphatase 77 Units/L (34-104); Aspartate Amino Transferase 79 Units/L (13-39); BUN/Creatinine Ratio 28 (6-26); Bilirubin,Direct 0.1 mg/dL (0.0-0.2); Bilirubin,Indirect 0.3 mg/dL (0.0-1.0); Bilirubin,Total 0.4 mg/dL (0.3-1.0); Blood Urea Nitrogen 35 mg/dL (8-23); Calcium 6.4 mg/dL (8.6-10.3); Carbon Dioxide 24 mEq/L (23-29); Chloride 104 mEq/L (98-107); Globulin 2.9 g/dL (2.4-3.5); Glucose 141 mg/dL (70-105); Magnesium 1.3 mg/dL (1.6-2.6); Osmolality,Calculated 292 (280-300); Phosphorous 3.2 mg/dL (2.7-4.5); Potassium 4.1 mEq/L (3.5-5.1); Sodium 136 mEq/L (136-145); Total Protein 6.2 g/dL (6.4-8.9); eGFR For African Americans > 60 (> 60); eGFR For Non-African Americans 57 (> 60)
[2020-08-26] MEDS: MethylPREDNISolone 40 MG/ML VIAL IVP SCH (05:02)
[2020-08-26 06:01] LABS: Estimated Average Glucose 108 mg/dl; Hemoglobin A1C 5.4 %
[2020-08-26] MEDS ORDERED: Calcium Gluconate 1gm/50mL 1 GM/50 ML BAG IVPB ONE (09:16)
[2020-08-26] MEDS: Folic Acid 1 MG TABLET PO SCH (09:38)
[2020-08-26] MEDS: Gabapentin 300 MG CAPSULE PO SCH ×3 (09:38→19:52)
[2020-08-26] MEDS: Aspirin Enteric Coated 81 MG Tablet PO SCH (09:38)
[2020-08-26] MEDS: Nicotine 14 MG PATCH.TD24 TD SCH (09:39)
[2020-08-26] MEDS: Thiamine (B-1) 200 MG in 0.9 % Sodium Chloride 50 ML IVPB SCH (09:41)
[2020-08-26] MEDS ORDERED: Azithromycin 250 MG TABLET PO SCH (17:00)
[2020-08-26] MEDS ORDERED: MethylPREDNISolone 40 MG/ML VIAL IVP ONE (20:00)
[2020-08-27] MEDS: Ipratropium/Albuterol Neb 3 ML IH SCH ×3 (03:24→11:39)
[2020-08-27 07:30] LABS: Basophils % 0.2 %; Hematocrit 37.2 % (37.5-50.1); Hemoglobin 12.6 g/dL (12.9-16.9); Immature Granulocytes % 1.3 % (0-4); Lymphocytes # 0.4 K/mcL (0.6-4.6); Lymphocytes % 3.8 %; Mean Corpuscular HGB Conc 33.9 g/dL (31.6-35.5); Mean Corpuscular Hemoglobin 34.1 pg (28.0-33.3); Mean Corpuscular Volume 100.8 fL (83.0-100.0); Mean Platelet Volume 10.9 fL (9.4-12.4); Monocytes # 0.5 K/mcL (0.0-1.3); Monocytes % 4.3 %; Neutrophils # 10.2 K/mcL (1.6-8.9); Platelet Count 290 K/mcL (140-400); Red Blood Count 3.69 M/mcL (4.19-5.50); Red Cell Distribution Width 12.5 % (11.5-14.5); Segmented Neutrophils % 90.4 %; White Blood Count 11.2 K/mcL (4.3-11.1)
[2020-08-27 07:43] VITALS: BP 150/89
[2020-08-27 07:47] LABS: Albumin 3.8 g/dL (3.5-5.7); Albumin/Globulin Ratio 1.4 (1.1-2.2); Bilirubin,Direct 0.2 mg/dL (0.0-0.2); Bilirubin,Indirect 0.4 mg/dL (0.0-1.0); Bilirubin,Total 0.6 mg/dL (0.3-1.0); Globulin 2.8 g/dL (2.4-3.5); Total Protein 6.6 g/dL (6.4-8.9)
[2020-08-27 07:48] LABS: BUN/Creatinine Ratio 23 (6-26); Blood Urea Nitrogen 28 mg/dL (8-23); Calcium 7.2 mg/dL (8.6-10.3); Carbon Dioxide 25 mEq/L (23-29); Chloride 100 mEq/L (98-107); Glucose 110 mg/dL (70-105); Magnesium 1.3 mg/dL (1.6-2.6); Osmolality,Calculated 282 (280-300); Phosphorous 3.2 mg/dL (2.7-4.5); Potassium 4.2 mEq/L (3.5-5.1); Sodium 133 mEq/L (136-145); eGFR For African Americans > 60 (> 60); eGFR For Non-African Americans 60 (> 60)
[2020-08-27] MEDS: Nicotine 14 MG PATCH.TD24 TD SCH (08:46)
[2020-08-27] MEDS: Gabapentin 300 MG CAPSULE PO SCH (08:53)
[2020-08-27] MEDS: Aspirin Enteric Coated 81 MG Tablet PO SCH (08:54)
[2020-08-27] MEDS: Folic Acid 1 MG TABLET PO SCH (08:54)
[2020-08-27] MEDS ORDERED: predniSONE 20 MG TABLET PO SCH (09:00)
== END 2020-08-27 12:26 | disposition home or self-care (01) | DRG 191 ==
LOC: 2ANU → SUATTDRO 18:24
PROVIDERS: ADMIT Internal Medicine; ATTEND Internal Medicine